=== PATIENT | male | born 1995 | race Caucasian/White ===

== ENCOUNTER 2016-11-06 10:23 | Emergency (ER) | payer OTHER, MEDICAID ==
[2016-11-06] MEDS ORDERED: SILVER SULFADIAZINE CREAM 25 GM TUBE TOP ONE (12:09)
[2016-11-06] MEDS ORDERED: TETANUS/DIPHTHERIA/PERTUSSIS 0.5 ML SYRINGE IM ONE ×2 (12:33→12:41)
== END 2016-11-06 13:00 | disposition home or self-care (01) ==
DX: S68.522A Partial traumatic transphalangeal amputation of left thumb, initial encounter (principal); W26.0XXA Contact with knife, initial encounter; Y93.G1 Activity, food preparation and clean up; Y92.511 Restaurant or cafe as the place of occurrence of the external cause; Y99.0 Civilian activity done for income or pay; Z23 Encounter for immunization; R03.0 Elevated blood-pressure reading, without diagnosis of hypertension
CPT/HCPCS: 1040M; 90471; 90715; 99283; A9270